=== PATIENT | male | born 1945 | race Caucasian/White ===

== ENCOUNTER 2017-06-01 09:08 | Inpatient (IN) | payer MEDICARE ==
[~2017-06-01] VITALS: Ht 170.2 cm; Wt 85.3 kg
--- NOTE | ~2017-06-01 | DS ---
Discharge Summary [facility] [address] [place]. [address] NAME: KIARA MORRISON JR : 43 STATUS : DIS IN PAT#: [id number] AGE: 72 ADM/REG DATE : 06/02/17 MR#: [id number] REPORT SERV DATE: 06/04/17 DICTATED BY: ROZINA MALDONADO DATE: 06/03/17 REPORT STATUS : Draft TRANSCRIBED BY: ARYA DATE: 06/03/17 ADMISSION DATE: 06/02/2017 DISCHARGE DATE: 06/03/2017 DISCHARGE DIAGNOSES: 1. Acute pancreatitis. 2. Hypertension. 3. Diverticulosis. 4. Degenerative joint disease. IMAGIN. CT abdomen and pelvis without contrast, impression; edema involving and surrounding the pancreas consistent with acute pancreatitis. Diverticulosis of the colon with no inflammation. 2. Gallbladder ultrasound, impression; within normal limits right upper quadrant abdominal ultrasound. No cholelithiasis. HISTORY OF PRESENT ILLNESS: For detailed HPI, please make reference to Dr. Stanton's dictation on 06/01/2017. In brief, this is a 72-year-old male with medical history of hypertension, who presented to the hospital with complaints of abdominal pain, nausea, and vomiting. Denies any episode of diarrhea. No fever. No chills. Of note, the patient had a similar presentation several years ago and was noted to have acute pancreatitis. Vital signs on presentation, blood pressure 157/78, pulse 62, temperature 98.5, respiratory rate 16, saturating 98% on room air. Abdominal exam significant for epigastric tenderness. No rebound. No guarding. Laboratory data: Lipase 7541. White cell count 15.8, hemoglobin 14.6, hematocrit 41.3, ALT 22, AST 15. CT scan of the abdomen was done that shows evidence of acute pancreatitis. An assessment of acute pancreatitis was made in the ER. The patient was admitted to the CDU unit. HOSPITAL COURSE: 1. Acute pancreatitis. The patient was started on IV fluid hydration and pain control, was made n.p.o. The patient's abdominal pain, nausea gradually improved. Subsequently, the patient's diet was advanced from clear liquids to full liquids and to regular diet. No evidence of hypercalcemia hypertriglyceridemia, or gallstone noted during this admission. Possible etiology of the patient's acute pancreatitis likely idiopathic versus hydrochlorothiazide use. Hydrochlorothiazide has now been discontinued. The patient will be advised to continue follow up with primary care physician. 2. Hypertension. The patient's blood pressure remained within control during the course of this admission. The patient was advised to continue follow up with primary care physician. Discharge Summary [facility] [id number] [place]. [address] NAME: KIARA MORRISON JR : 43 STATUS : DIS IN PAT#: [id number] AGE: 72 ADM/REG DATE : 06/02/17 MR#: [id number] REPORT SERV DATE: 06/04/17 DICTATED BY: ROZINA MALDONADO DATE: 06/03/17 REPORT STATUS : Draft TRANSCRIBED BY: ARYA DATE: 06/03/17 DISCHARGE MEDICATIONS: Lotrel 5/40 one p.o. every evening, Coreg 6.25 mg p.o. b.i.d., Afrin nasal spray twice b.i.d. DISCHARGE DISPOSITION: Home. DISCHARGE FOLLOWUP: Follow up with primary care physician within one to two weeks of discharge. Greater than 30 minutes was used to prepare this patient's discharge, reconcile medication, advise the patient on discharge plans and followup. DORCASO/ARYA Rozina Maldonado MD / [id number] CC: MD TAMRA Ayala CRAIG HUDGINS
--- NOTE | ~2017-06-01 | HP ---
History And Physical [place] [address] [facility] [place]. [address] NAME: KIARA MORRISON JR : 43 STATUS : ADM Nasir PAT#: [id number] AGE: 72 ADM/REG DATE : 06/01/17 MR#: [id number] REPORT SERV DATE: 06/01/17 DICTATED BY: ASHLYN RINCON DATE: 06/01/17 REPORT STATUS : Draft TRANSCRIBED BY: MODL DATE: 06/01/17 DATE OF ADMISSION: 06/01/2017 CHIEF COMPLAINT: Abdominal pain and nausea. HISTORY OF PRESENT ILLNESS: The patient is a 72-year-old male. He has a past medical history for hypertension. He presented emergency department today with three to four days history of abdominal swelling, pain, nausea without emesis, or diarrhea. The patient states he had similar symptoms approximately 15 years ago, was diagnosed with pancreatitis, undetermined etiology. He became suspicious that he may be having recurrent bowel, presented to the emergency department. He was noted to have CT changes suggestive of pancreatitis incidentally without any dilatation of bile ducts or changes in his gallbladder. He had a lipase of approximately 7541. He is being admitted for acute pancreatitis. His risk factors for pancreatitis. He is on a thiazide diuretic. He had an acceptable triglyceride level in September of this year of 102. He has never been a drinker and again on his CT, no signs of gallstone pancreatitis. He is reasonably comfortable without significant complaints otherwise. PAST MEDICAL HISTORY: Hypertension. PAST SURGICAL HISTORY: Bilateral knee surgery a little over a year ago. CURRENT MEDICATIONS: Lotrel 5/40, Coreg 6.25 b.i.d., hydrochlorothiazide 12.5, Aleve 220, Afrin nasal spray. ALLERGIES: NONE. FAMILY HISTORY: Both parents in their 80s to 90s. Father had cardiovascular disease. Mother had dementia. SOCIAL HISTORY: He is a nonsmoker and nondrinker. REVIEW OF SYSTEMS: HEENT: No headache, dizziness, chest pain, palpitations, shortness of breath, cough, edema, dysuria. GI symptoms are as covered in HPI, though GI symptoms are as covered in HPI. Otherwise, review of systems is otherwise negative. PHYSICAL EXAMINATION: VITAL SIGNS: BP 157/78, pulse 62, temperature 98.5, respirations 16, sat 98%. GENERAL: He is awake, alert, comfortable, in no acute distress. HEENT: Normocephalic, atraumatic. Sclerae nonicteric. NECK: Supple. HEART: Regular rate and rhythm. LUNGS: Clear to auscultation without rhonchi, rales, or wheezes. ABDOMEN: He does have some distention. He has some mild mid epigastric pain. No guarding or rebound. Bowel sounds are still present. History And Physical [address] [place]. [address] NAME: KIARA MORRISON JR : 43 STATUS : ADM Nasir PAT#: [id number] AGE: 72 ADM/REG DATE : 06/01/17 MR#: [id number] REPORT SERV DATE: 06/01/17 DICTATED BY: ASHLYN RINCON DATE: 06/01/17 REPORT STATUS : Draft TRANSCRIBED BY: ARYA DATE: 06/01/17 EXTREMITIES: No clubbing, cyanosis, or edema. NEUROLOGIC: Intact. LABORATORY DATA: Sodium 138, potassium 4.1, chloride 101, CO2 29, BUN and creatinine 18 and 0.9 with a glucose of 181. In 09/2016, triglycerides was 102, AST was 15, ALT was 22. Total bilirubin is 0.9. Lipase is 7541, white count 15.8, H and H is 14.6 and 41.3, platelets 163. UA shows 30 protein, 150 glucose, trace ketones and 2.[address] shows acute pancreatitis. No gallbladder ductal dilatation or wall thickening. He did have diverticulosis but no diverticulitis. ASSESSMENT: Pancreatitis. Differential would be repeat recurrent idiopathic versus thiazide versus other potential causes. PLAN: 1. The patient has been admitted. 2. IV pain medications. 3. IV hydration. 4. Serial lipase. 5. Home medications minus his thiazide. 6. I will order gallbladder KUB in a.m. TLF/MODL Ashlyn Rincon M.D. / [id number] CC: Jessica Yang CRAIG HUDGINS
[~2017-06-01 09:08] MED LIST: ALEVE220 MG PO; COREG6 PO; HYDROCHLOROT12.5 MG PO; IRON325 MG PO; PRIN20 PO; VITC500 PO
[2017-06-01 10:10] LABS: BASOPHILS 0.4 %; BASOPHILS ABSOLUTE 0.06 10/3/uL (0.0-0.16); EOSINOPHILS 0.1 %; EOSINOPHILS ABSOLUTE 0.01 10/3/uL (0.0-0.53); IMMATURE GRANULOCYTES 0.3 %; IMMATURE GRANULOCYTES ABSOLUTE 0.05 10/3/uL (0.0-0.11); LYMPHOCYTES 8.1 %; LYMPHOCYTES ABSOLUTE 1.28 10/3/uL (0.67-4.30); MEAN CORPUSCULAR HEMOGLOB 30.7 pg (26.0-34.0); MEAN CORPUSCULAR VOLUME 86.9 fL (80-100); MEAN PLATELET VOLUME 9.3 fL (9.2-13.0); MONOCYTES 9.5 %; MONOCYTES ABSOLUTE 1.49 10/3/uL (0.21-1.20); NEUTROPHILS 81.6 %; NEUTROPHILS ABSOLUTE 12.87 10/3/uL (2.02-8.40); PLATELET COUNT 163 10/3/uL (150-400); RBC DISTRIBUTION WIDTH 13.8 % (12.0-16.0)
[2017-06-01 10:11] LABS: HEMATOCRIT 41.3 % (40.0-51.0); HEMOGLOBIN 14.6 g/dL (13.6-17.8); MANUAL DIFF NO %; MEAN CORPUS HGB CONC 35.4 g/dL (32.0-36.0); RED CELL COUNT 4.75 10/6/uL (4.7-6.1); WHITE BLOOD CELLS 15.8 10/3/uL (4.5-10.5)
[2017-06-01 10:18] LABS: ASCORBIC ACID (UR NOT ORDER) NEG (NEG); BILIRUBIN, URINE NEGATIVE (NEG); ER URINALYSIS TAT 0 Hrs 13 Mins; KETONE, URINE TRACE MG/DL (NEG); LEUKOCYTE ESTERASE(NOT OR NEG (NEG); NITRITE (URINE) NEG (NEG); WBC (NOT ORDERED) (RFLEX) 2 (0-5)
[2017-06-01 10:27] LABS: CHLORIDE, SERUM 101 MMOL/L (96-112); CO2 (CARBON DIOXIDE) 29 MMOL/L (24-34); CREATININE 0.98 MG/DL (0.70-1.30); GFR AFRICAN AMERICAN 88 ML/MIN (>=60); GFR NON AFRICAN AMERICAN 76 ML/MIN (>=60); POTASSIUM, SERUM 4.1 MMOL/L (3.5-5.3); SGOT(AST) 15 U/L (5-40); SGPT(ALT) 22 U/L (5-65); SODIUM, SERUM 138 MMOL/L (135-148); TOTAL BILIRUBIN 0.9 MG/DL (0-1.2)
[2017-06-01 10:29] LABS: A/G RATIO 0.9 (0.7-1.9); ALBUMIN 3.8 G/DL (3.5-5.0); ALKALINE PHOSPHATASE 60 U/L (45-117); BUN (BLOOD UREA NITROGEN) 18 MG/DL (6-23); CALCIUM, SERUM 8.8 MG/DL (8.5-10.4); GLOBULIN 4.1 G/DL (2.5-4.1); GLUCOSE, SERUM 181 MG/DL (60-99); TOTAL PROTEIN 7.9 G/DL (6.0-8.5)
[2017-06-01] MEDS ORDERED: COREG6 PO (11:45)
[2017-06-01] MEDS ORDERED: LOTREL1 CA3 PO (11:45)
[2017-06-01] MEDS ORDERED: HCTZ12.5 PO (11:46)
[2017-06-01] MEDS ORDERED: ALEVE220 MG PO (11:46)
[2017-06-01] MEDS ORDERED: AFRIN15 NAS (11:47)
[2017-06-01 17:20] LABS: PROCALCITONIN 0.11 ng/mL (<0.5)
[2017-06-01 17:49] LABS: B NATRIURETIC PEPTIDE (BNP) 123.6 PG/ML (< 100.0)
[2017-06-01 17:52] LABS: ULTRASENSITIVE TSH 0.731 MCIU/ML (0.358-3.740)
[2017-06-01 21:27] LABS: GLYCOHEMOGLOBIN (HbA1c) 6.1 % (4.7-6.1)
[2017-06-03 04:43] LABS: BASOPHILS 0.4 %; BASOPHILS ABSOLUTE 0.04 10/3/uL (0.0-0.16); EOSINOPHILS 3.7 %; HEMOGLOBIN 12.6 g/dL (13.6-17.8); IMMATURE GRANULOCYTES 0.4 %; IMMATURE GRANULOCYTES ABSOLUTE 0.04 10/3/uL (0.0-0.11); LYMPHOCYTES 15.7 %; LYMPHOCYTES ABSOLUTE 1.72 10/3/uL (0.67-4.30); MEAN CORPUS HGB CONC 34.9 g/dL (32.0-36.0); MEAN CORPUSCULAR HEMOGLOB 30.7 pg (26.0-34.0); MEAN PLATELET VOLUME 9.7 fL (9.2-13.0); MONOCYTES ABSOLUTE 0.88 10/3/uL (0.21-1.20); NEUTROPHILS 71.8 %; NEUTROPHILS ABSOLUTE 7.87 10/3/uL (2.02-8.40); PLATELET COUNT 143 10/3/uL (150-400); RBC DISTRIBUTION WIDTH 13.9 % (12.0-16.0)
[2017-06-03 04:44] LABS: HEMATOCRIT 36.1 % (40.0-51.0); MANUAL DIFF NO %
[2017-06-03 04:57] LABS: BUN (BLOOD UREA NITROGEN) 16 MG/DL (6-23); CHLORIDE, SERUM 108 MMOL/L (96-112); CO2 (CARBON DIOXIDE) 25 MMOL/L (24-34); CREATININE 0.68 MG/DL (0.70-1.30); GFR AFRICAN AMERICAN 110 ML/MIN (>=60); GFR NON AFRICAN AMERICAN 95 ML/MIN (>=60); POTASSIUM, SERUM 3.3 MMOL/L (3.5-5.3); SODIUM, SERUM 140 MMOL/L (135-148)
[2017-06-03 04:58] LABS: CALCIUM, SERUM 7.7 MG/DL (8.5-10.4); GLUCOSE, SERUM 117 MG/DL (60-99)
== END 2017-06-03 17:49 | disposition home or self-care (01) | DRG 440 ==
LOC: ER 09:08 → EDBEDREQ 13:06 → CDU1 13:09 → CDU2 13:09
PROVIDERS: Hospitalist; Internal Medicine; Physician Assistant
DX: K85.90 Acute pancreatitis without necrosis or infection, unspecified (principal); I10 Essential (primary) hypertension; K57.30 Diverticulosis of large intestine without perforation or abscess without bleeding; M19.90 Unspecified osteoarthritis, unspecified site; Z79.899 Other long term (current) drug therapy
CPT/HCPCS: 71020; 74020; 74176; 76705; 80048; 80053; 81001; 82150; 83036; 83520; 83605; 83690; 83735; 83880; 84132; 84145; 84443; 85025; 96374; 96375; 99285; A9270-GY; J2405